=== PATIENT | female | born 1975 | race Caucasian/White ===

== ENCOUNTER 2018-08-31 12:35 | Outpatient (CLI) | payer OTHER ==
[~2018-08-31 12:35] MED LIST: TOBRADEX EYE DR10 ML OP; ULTRACET PO
== END 2018-08-31 12:39 | disposition home or self-care (01) ==
LOC: SONOGRAMA 12:35
DX: M17.12 Unilateral primary osteoarthritis, left knee (principal)

== ENCOUNTER 2020-07-19 07:31 | Outpatient (CLI) | payer OTHER ==
[2020-07-24] MEDS ORDERED: ZYRTEC10 M3 PO (15:09)
== END 2020-07-19 15:00 | disposition home or self-care (01) ==
LOC: LAB 07:31
PROVIDERS: ATTEND Obstetrics & Gynecology
DX: Z03.818 Encounter for observation for suspected exposure to other biological agents ruled out (principal); Z20.828 Contact with and (suspected) exposure to other viral communicable diseases; R05 Cough

== ENCOUNTER 2020-07-26 09:48 | Day surgery (SDC) | payer OTHER ==
[~2020-07-26 09:48] MED LIST changes: +ZYRTEC10 M3 PO
[2020-07-26] MEDS ORDERED: ULTRACET PO (15:55)
[2020-07-26] MEDS ORDERED: COLACE100 MG PO (15:56)
[2020-07-26] MEDS ORDERED: MORGIDOX100 MG PO (15:57)
== END 2020-07-26 17:05 | disposition home or self-care (01) ==
LOC: CIR.AMB 09:48
PROVIDERS: ATTEND Obstetrics & Gynecology
DX: D27.1 Benign neoplasm of left ovary (principal); Z20.828 Contact with and (suspected) exposure to other viral communicable diseases